=== PATIENT | male | born 1980 | race African-American/Black ===

== ENCOUNTER 2021-02-05 02:07 | Emergency (ER) | payer MEDICAID ==
[~2021-02-05] VITALS: Ht 182.9 cm; Wt 82.0 kg
[2021-02-05 02:09] VITALS: BP 140/83
[2021-02-05] MEDS ORDERED: BACITRACIN ZINC OINT UDPKT TOP ONE (02:30)
[2021-02-05] MEDS ORDERED: TETANUS, DIPHTHERIA, PERTUSSIS VAC/PF 0.5ML (>10YR OLD) IM ONE (02:30)
[2021-02-05] MEDS ORDERED: HYDROCODONE/ACETAMINOPHEN 5/325MG TABLET PO ONE (02:30)
[2021-02-05] MEDS ORDERED: LIDOCAINE HCL/PF 1% 10 MG/ML 5ML VIAL INFIL ONE (02:30)
[2021-02-05] MEDS ORDERED: LIDOCAINE HCL 1% 10 MG/ML 10ML VIAL IJ SCH (02:45)
[2021-02-05] MEDS ORDERED: CEPH500C2 MT (03:39)
[2021-02-05] MEDS ORDERED: BO1 TP (03:39)
== END 2021-02-05 05:00 | disposition home or self-care (01) ==
LOC: EDBD 02:07 → ER 02:07
DX: S56.128A Laceration of flexor muscle, fascia and tendon of left little finger at forearm level, initial encounter (principal); F17.210 Nicotine dependence, cigarettes, uncomplicated; W26.0XXA Contact with knife, initial encounter; Y93.89 Activity, other specified; Y92.010 Kitchen of single-family (private) house as the place of occurrence of the external cause
CPT/HCPCS: 12001; 99283; J3490; Z7610

== ENCOUNTER 2021-10-10 06:27 | Emergency (ER) | payer MEDICAID ==
[~2021-10-10] VITALS: Ht 175.3 cm; Wt 73.3 kg
[~2021-10-10 06:27] MED LIST: BO1 TP; CEPH500C2 MT
[2021-10-10 07:30] VITALS: BP 140/81
[2021-10-10] MEDS ORDERED: HYDROCODONE/ACETAMINOPHEN 5/325MG TABLET PO ONE (07:30)
[2021-10-10] MEDS ORDERED: HYDR-4001 MT (09:16)
== END 2021-10-10 09:34 | disposition home or self-care (01) ==
LOC: ER 06:27
DX: M25.561 Pain in right knee (principal); F17.290 Nicotine dependence, other tobacco product, uncomplicated; Y90.0 Blood alcohol level of less than 20 mg/100 ml; F10.20 Alcohol dependence, uncomplicated
CPT/HCPCS: 73562; 99283; 99406; L1830

== ENCOUNTER 2022-11-17 19:40 | Emergency (ER) | payer MEDICAID, OTHER ==
[~2022-11-17] VITALS: Ht 175.3 cm; Wt 70.0 kg
[~2022-11-17 19:40] MED LIST changes: +HYDR-4001 MT
[2022-11-17 19:57] VITALS: TEMP 98.4; O2SAT 99
[2022-11-17] MEDS ORDERED: OFLO5DRO4 RIGHT EAR (22:33)
[2022-11-17] MEDS ORDERED: TOPUD MT (22:33)
[2022-11-17] MEDS ORDERED: CETI10CA11 MT (22:33)
[2022-11-17 22:39] VITALS: BP 142/89; PULSE 91; RESP 17
== END 2022-11-17 22:42 | disposition home or self-care (01) ==
LOC: ER 19:40
DX: H60.91 Unspecified otitis externa, right ear (principal)
CPT/HCPCS: 99283

== ENCOUNTER 2023-01-28 18:20 | Emergency (ER) | payer MEDICAID, OTHER ==
[~2023-01-28] VITALS: Ht 175.3 cm; Wt 68.0 kg
[~2023-01-28 18:20] MED LIST changes: +CETI10CA11 MT; +OFLO5DRO4 RIGHT EAR; +TOPUD MT
[2023-01-28 18:38] VITALS: BP 148/102; PULSE 69; RESP 16; TEMP 98.2; O2SAT 100
[2023-01-28] MEDS ORDERED: CIPR2.5D17 LEFTEYE (20:50)
== END 2023-01-28 21:12 | disposition home or self-care (01) ==
LOC: ER 18:20
DX: T15.92XA Foreign body on external eye, part unspecified, left eye, initial encounter (principal); H57.12 Ocular pain, left eye; X58.XXXA Exposure to other specified factors, initial encounter; Y93.89 Activity, other specified; Y92.89 Other specified places as the place of occurrence of the external cause; Y99.8 Other external cause status
CPT/HCPCS: 99282; 99283

== ENCOUNTER 2023-11-14 20:58 | Inpatient (IN) | payer MEDICAID, OTHER ==
[~2023-11-14] VITALS: Ht 154.9 cm; Wt 63.0 kg
[~2023-11-14 20:58] MED LIST changes: +CIPR2.5D17 LEFTEYE
[2023-11-14 21:35] LABS: BASOPHILS % 0.4 % (0.0-2.0); DIFFERENTIAL COMMENT 0; HEMATOCRIT. 26.5 % (42.0-52.0); HEMOGLOBIN. 8.6 g/dL (14.0-18.0); MEAN CORPUSCULAR HEMOGLOBIN 30.8 pg (28.0-32.0); MEAN CORPUSCULAR HGB CONC 32.6 g/dL (31.0-37.0); MEAN CORPUSCULAR VOLUME 94.6 fL (80.0-94.0); MEAN PLATELET VOLUME 7.6 fl (7.4-10.4); MONOCYTES % 5.4 % (2.0-8.0); NEUTROPHILS % 86.2 % (40.0-76.0); PLATELET 935 x1000/uL (130-400); RED CELL DISTRIBUTION WIDTH 15.6 % (11.6-14.6); WHITE BLOOD COUNT 14.4 x1000/uL (4.5-11.0)
[2023-11-14] MEDS: LORAZEPAM 2MG/ML INJ IV ONE (21:37)
[2023-11-14 21:38] LABS: CHLORIDE 99 mEq/L (98-107); POTASSIUM 4.9 mEq/L (3.5-5.1); SODIUM 134 mEq/L (136-145)
[2023-11-14 21:39] LABS: CARBON DIOXIDE 21 mEq/L (21-32)
[2023-11-14 21:40] LABS: CALCIUM 9.5 mg/dL (8.7-10.4)
[2023-11-14] MEDS: ASPIRIN 81MG TABLET PO ONE (21:40)
[2023-11-14] MEDS: NITROGLYCERIN OINT 1GM/INCH UDPKT TD ONE (21:41)
[2023-11-14 21:44] LABS: CREATININE 1.2 mg/dL (0.6-1.3); GLUCOSE 113 mg/dL (70-105); UREA NITROGEN BLOOD 36 mg/dL (9-23)
[2023-11-14 21:52] LABS: TROPONIN I HIGH SENSITIVITY 425 ng/L (3.0-53)
[2023-11-14] MEDS: NALOXONE HCL 1MG/ML 2ML VIAL IV ONE (22:54)
[2023-11-14] MEDS: FUROSEMIDE 40MG/4ML VIAL IVP SCH (22:58)
[2023-11-14 23:00] VITALS: RESP 49
[2023-11-14 23:10] LABS: BG BASE EXCESS -0.2 mmol/L (-2.0-3.0); BG CARBOXYHEMOGLOBIN 0.3 % (0.5-1.5); BG DEOXYHEMOGLOBIN 4.2 % (0.0-5.0); BG FRACTION INSPIRED OXYGEN 100; BG HCO3 ACT 24.1 mmol/L (21.0-28.0); BG METHEMOGLOBIN 0.3 % (0.5-1.5); BG OXYGEN SATURATION 95.8 % (94.0-98.0); BG OXYHEMOGLOBIN 95.2 % (94.0-98.0); BG PO2 87.4 mmHg (83.0-108.0); BG SAMPLE SITE RIGHT RADIAL; BG TOTAL HEMOGLOBIN 10.3 g/dL (13.5-17.5); BG VENT MODE MASK - NRB
[2023-11-15] VITALS (41 sets, daily range): BP systolic 82–122; BP diastolic 53–90; PULSE 96–118; RESP 22–48; TEMP 36.33624–37.0296; O2SAT 98–100
[2023-11-15 01:31] LABS: TROPONIN I HIGH SENSITIVITY 483 ng/L (3.0-53)
[2023-11-15] MEDS: FUROSEMIDE 40MG/4ML VIAL IVP NR (10:25)
[2023-11-15] MEDS ORDERED: MIDAZOLAM HCL 100 MG in SODIUM CHLORIDE 0.9% 80 ML IV PRN (12:00)
[2023-11-15] MEDS: LORAZEPAM 2MG/ML INJ IM NR (12:08)
[2023-11-15] MEDS: PROPOFOL 10MG/ML 100ML 100 ML IV PRN (12:10)
[2023-11-15 13:08] LABS: BG BASE EXCESS 6.2 mmol/L (-2.0-3.0); BG CARBOXYHEMOGLOBIN 0.7 % (0.5-1.5); BG DEOXYHEMOGLOBIN 0.7 % (0.0-5.0); BG FRACTION INSPIRED OXYGEN 100; BG HCO3 ACT 29.7 mmol/L (21.0-28.0); BG METHEMOGLOBIN 0.2 % (0.5-1.5); BG OXYGEN SATURATION 99.3 % (94.0-98.0); BG OXYHEMOGLOBIN 98.4 % (94.0-98.0); BG PCO2 38.7 mmHg (35.0-48.0); BG PH 7.503 (7.350-7.450); BG PO2 160.6 mmHg (83.0-108.0); BG SAMPLE SITE RIGHT RADIAL; BG TOTAL HEMOGLOBIN 11.5 g/dL (13.5-17.5); BG VENT MODE VENT - P/C
[2023-11-15] MEDS: MIDAZOLAM 100MG/100ML PMX 100 ML IV PRN (13:15)
[2023-11-15] MEDS ORDERED: LIDOCAINE HCL 1% 10 MG/ML 10ML VIAL ONE (13:17)
[2023-11-15] MEDS: NOREPINEPHRINE 8MG/250ML PMX 250 ML IV PRN (16:10)
[2023-11-15] MEDS ORDERED: ACETAMINOPHEN 325MG TABLET PO PRN (16:15)
[2023-11-15] MEDS ORDERED: DOCUSATE SODIUM 100MG CAPSULE PO PRN (16:15)
[2023-11-15] MEDS: VANCOMYCIN 1.5GM/250ML IV NR (16:41)
[2023-11-15] MEDS: PANTOPRAZOLE SODIUM 40 MG/VIAL IV SCH (16:52)
[2023-11-15 16:53] LABS: CLARITY URINE CLEAR (CLEAR); COLOR URINE YELLOW (YELLOW); GLUCOSE URINE NEGATIVE (NEGATIVE); KETONES URINE NEGATIVE (NEGATIVE); LEUKOCYTE ESTERASE URINE NEGATIVE (NEGATIVE); NITRITE URINE NEGATIVE (NEGATIVE); OCCULT BLOOD URINE NEGATIVE (NEGATIVE); PROTEIN URINE NEGATIVE (NEGATIVE); SPECIFIC GRAVITY URINE 1.012 (1.005-1.030); UROBILINOGEN URINE 0.2 E.U./dL (0.2-1.0)
[2023-11-15] MEDS: INSULIN LISPRO 100 UNITS/ML SUBCUT SCH (17:00)
[2023-11-15] MEDS: BLOOD SUGAR DIAGNOSTIC STRIP TEST SCH (17:11)
[2023-11-15 17:22] LABS: *AMPHETAMINES SCREEN URINE NEGATIVE (NEGATIVE); *BARBITURATES SCREEN URINE NEGATIVE (NEGATIVE); *BENZODIAZEPINES SCREEN URINE NEGATIVE (NEGATIVE); *COCAINE SCREEN URINE PRESUMPTIVE POSITIVE (NEGATIVE); CANNABINOID URINE SCREEN NEGATIVE (NEGATIVE); ECSTASY MDMA SCREEN URINE NEGATIVE (NEGATIVE); METHADONE URINE SCREEN NEGATIVE (NEGATIVE); OPIATES URINE SCREEN NEGATIVE (NEGATIVE); PHENCYCLIDINE URINE SCREEN NEGATIVE (NEGATIVE)
[2023-11-15] MEDS: ENOXAPARIN 80MG/0.8ML SYR SUBCUT NR (18:24)
[2023-11-15 20:24] LABS: BASOPHILS % 0.4 % (0.0-2.0); EOSINOPHILS % 0.2 % (0.0-5.0); HEMATOCRIT. 26.8 % (42.0-52.0); HEMOGLOBIN. 8.7 g/dL (14.0-18.0); LYMPHOCYTES % 10.4 % (20.0-50.0); MEAN CORPUSCULAR HEMOGLOBIN 30.9 pg (28.0-32.0); MEAN CORPUSCULAR HGB CONC 32.5 g/dL (31.0-37.0); MEAN CORPUSCULAR VOLUME 95.2 fL (80.0-94.0); MEAN PLATELET VOLUME 7.8 fl (7.4-10.4); PLATELET 779 x1000/uL (130-400); RED BLOOD CELL COUNT 2.81 mill/uL (4.7-6.1); RED CELL DISTRIBUTION WIDTH 15.6 % (11.6-14.6); WHITE BLOOD COUNT 16.7 x1000/uL (4.5-11.0)
[2023-11-15 20:29] LABS: CARBON DIOXIDE 30 mEq/L (21-32); CHLORIDE 103 mEq/L (98-107); POTASSIUM 3.4 mEq/L (3.5-5.1); SODIUM 140 mEq/L (136-145)
[2023-11-15 20:30] LABS: CALCIUM 8.6 mg/dL (8.7-10.4)
[2023-11-15 20:35] LABS: CREATININE 1.1 mg/dL (0.6-1.3); GLUCOSE 79 mg/dL (70-105); UREA NITROGEN BLOOD 33 mg/dL (9-23)
[2023-11-15 20:36] LABS: ALANINE AMINOTRANSFERASE 23 IU/L (10-49); ALBUMIN 3.7 g/dL (3.2-4.8)
[2023-11-15 20:37] LABS: ASPARTATE AMINOTRANSFERASE 35 IU/L (<34); BILIRUBIN DIRECT 0.2 mg/dL (<=3.0); BILIRUBIN TOTAL 0.7 mg/dL (0.1-1.0); PHOSPHORUS 4.1 mg/dL (2.5-4.9); PROTEIN TOTAL 6.7 g/dL (6.0-8.3)
[2023-11-15 20:40] LABS: T4 FREE 1.29 ng/dL (0.89-1.76); THYROID STIMULATING HORMONE 0.38 uIU/mL (0.55-4.78)
[2023-11-15 20:42] LABS: D-DIMER 4.53 mg/L FEU (<0.50); INR 1.2; PROTHROMBIN TIME 13.6 sec (9.6-11.0)
[2023-11-15] MEDS: DEXTROSE 50% WATER 50ML SYRINGE IV PRN (21:04)
[2023-11-15] MEDS: FUROSEMIDE 40MG/4ML VIAL IVP SCH (21:23)
[2023-11-15] MEDS: PIPERACILLIN/TAZO 3.375G/50ML 50 ML IV SCH (21:24)
[2023-11-16] VITALS (106 sets, daily range): BP systolic 90–131; BP diastolic 57–110; PULSE 93–110; RESP 16–25; TEMP 36.00288–37.00296; O2SAT 96–100
[2023-11-16] MEDS: VANCOMYCIN 1000MG/250ML IV SCH (04:17)
[2023-11-16 05:28] LABS: BASOPHILS % 0.7 % (0.0-2.0); EOSINOPHILS % 0.4 % (0.0-5.0); HEMATOCRIT. 23.9 % (42.0-52.0); LYMPHOCYTES % 8.1 % (20.0-50.0); MEAN CORPUSCULAR HEMOGLOBIN 31.4 pg (28.0-32.0); MEAN CORPUSCULAR HGB CONC 33.5 g/dL (31.0-37.0); MEAN CORPUSCULAR VOLUME 93.8 fL (80.0-94.0); MEAN PLATELET VOLUME 8.2 fl (7.4-10.4); MONOCYTES % 5.4 % (2.0-8.0); NEUTROPHILS % 85.4 % (40.0-76.0); PLATELET 669 x1000/uL (130-400); RED BLOOD CELL COUNT 2.55 mill/uL (4.7-6.1); WHITE BLOOD COUNT 12.7 x1000/uL (4.5-11.0)
[2023-11-16 05:39] LABS: CARBON DIOXIDE 31 mEq/L (21-32); CHLORIDE 102 mEq/L (98-107); POTASSIUM 2.9 mEq/L (3.5-5.1); SODIUM 143 mEq/L (136-145)
[2023-11-16 05:40] LABS: CALCIUM 9.1 mg/dL (8.7-10.4)
[2023-11-16 05:42] LABS: FOLIC ACID (FOLATE) SERUM 7.19 ng/mL (>5.38); VITAMIN B12 SERUM 329 pg/mL (211-911)
[2023-11-16 05:43] LABS: FERRITIN 1029 ng/mL (22-322)
[2023-11-16 05:44] LABS: IRON 19 ug/dL (65-175)
[2023-11-16 05:45] LABS: CREATININE 0.9 mg/dL (0.6-1.3); GLUCOSE 77 mg/dL (70-105); TOTAL IRON BINDING CAPACITY 340 ug/dl (250-425); TRIGLYCERIDE 249 mg/dL (0-150); UREA NITROGEN BLOOD 28 mg/dL (9-23)
[2023-11-16 05:46] LABS: ALANINE AMINOTRANSFERASE 23 IU/L (10-49); ALBUMIN 3.8 g/dL (3.2-4.8); LDL CHOLESTEROL 94 mg/dL (5-100)
[2023-11-16 05:47] LABS: ASPARTATE AMINOTRANSFERASE 30 IU/L (<34); BILIRUBIN DIRECT 0.2 mg/dL (<=3.0); BILIRUBIN TOTAL 0.7 mg/dL (0.1-1.0); CHOLESTEROL 159 mg/dL (<200); HDL CHOLESTEROL 21 mg/dL (>55); PHOSPHORUS 3.1 mg/dL (2.5-4.9); PROTEIN TOTAL 6.7 g/dL (6.0-8.3)
[2023-11-16] MEDS: ENOXAPARIN 60MG/0.6ML SYR SUBCUT SCH (05:57)
[2023-11-16 06:14] LABS: INR 1.2
[2023-11-16] MEDS: KCL 20MEQ/100ML PREMIX 100 ML IV SCH (07:58)
[2023-11-16] MEDS: ASPIRIN 81MG TABLET PO SCH (08:05)
[2023-11-16 08:31] LABS: BG CARBOXYHEMOGLOBIN 0.7 % (0.5-1.5); BG DEOXYHEMOGLOBIN 1.1 % (0.0-5.0); BG FRACTION INSPIRED OXYGEN 50; BG HCO3 ACT 32.8 mmol/L (21.0-28.0); BG METHEMOGLOBIN 0.3 % (0.5-1.5); BG OXYGEN SATURATION 98.9 % (94.0-98.0); BG OXYHEMOGLOBIN 97.9 % (94.0-98.0); BG PCO2 42.4 mmHg (35.0-48.0); BG PH 7.507 (7.350-7.450); BG PO2 128.1 mmHg (83.0-108.0); BG SAMPLE SITE RIGHT RADIAL; BG TOTAL HEMOGLOBIN 7.9 g/dL (13.5-17.5); BG VENT MODE VENT - AC/PC
[2023-11-16] MEDS: AZITHROMYCIN 500 MG TABLET PO SCH (16:30)
[2023-11-16] MEDS: VANCOMYCIN 750MG/150ML (BAXTER) IV SCH (17:07)
[2023-11-16] MEDS ORDERED: PROPOFOL 10MG/ML 100ML 100 ML IV PRN ×2 (18:30→18:45)
[2023-11-17] VITALS (75 sets, daily range): BP systolic 93–130; BP diastolic 62–90; PULSE 91–109; RESP 12–21; TEMP 36.44736–37.00296; O2SAT 94–100
[2023-11-17 02:58] LABS: BASOPHILS % 0.8 % (0.0-2.0); EOSINOPHILS % 2.5 % (0.0-5.0); HEMATOCRIT. 24.4 % (42.0-52.0); HEMOGLOBIN. 8.2 g/dL (14.0-18.0); LYMPHOCYTES % 15.8 % (20.0-50.0); MEAN CORPUSCULAR HEMOGLOBIN 31.2 pg (28.0-32.0); MEAN CORPUSCULAR HGB CONC 33.6 g/dL (31.0-37.0); MEAN CORPUSCULAR VOLUME 92.9 fL (80.0-94.0); MEAN PLATELET VOLUME 7.1 fl (7.4-10.4); MONOCYTES % 9.2 % (2.0-8.0); NEUTROPHILS % 71.7 % (40.0-76.0); PLATELET 699 x1000/uL (130-400); RED BLOOD CELL COUNT 2.62 mill/uL (4.7-6.1); RED CELL DISTRIBUTION WIDTH 15.6 % (11.6-14.6)
[2023-11-17 03:02] LABS: CHLORIDE 105 mEq/L (98-107); SODIUM 143 mEq/L (136-145)
[2023-11-17 03:03] LABS: CARBON DIOXIDE 32 mEq/L (21-32)
[2023-11-17 03:04] LABS: CALCIUM 8.9 mg/dL (8.7-10.4)
[2023-11-17 03:08] LABS: CREATININE 1.1 mg/dL (0.6-1.3); GLUCOSE 102 mg/dL (70-105)
[2023-11-17 03:09] LABS: UREA NITROGEN BLOOD 23 mg/dL (9-23)
[2023-11-17 03:11] LABS: ALBUMIN 3.7 g/dL (3.2-4.8); PREALBUMIN 9.3 mg/dl (10.0-40.0)
[2023-11-17] MEDS: KCL 20MEQ/100ML PREMIX 100 ML IV SCH ×2 (07:47→09:10)
[2023-11-17] MEDS: MAGNESIUM 2 G PREMIX 50 ML IV NR (09:27)
[2023-11-17] MEDS: MIDAZOLAM 100MG/100ML PMX 100 ML IV PRN (16:00)
[2023-11-17] MEDS ORDERED: PROPOFOL 10MG/ML 100ML 100 ML IV PRN (18:30)
[2023-11-18] VITALS (77 sets, daily range): BP systolic 101–146; BP diastolic 77–112; PULSE 94–113; RESP 14–29; TEMP 36.61404–37.11408; O2SAT 96–100
[2023-11-18] MEDS: LORAZEPAM 2MG/ML INJ IV PRN (01:30)
[2023-11-18] MEDS: ONDANSETRON HCL 4MG/2ML INJ IV PRN (01:30)
[2023-11-18 05:03] LABS: CHLORIDE 106 mEq/L (98-107); POTASSIUM 3.1 mEq/L (3.5-5.1); SODIUM 146 mEq/L (136-145)
[2023-11-18 05:04] LABS: CARBON DIOXIDE 31 mEq/L (21-32)
[2023-11-18 05:05] LABS: CALCIUM 9.5 mg/dL (8.7-10.4)
[2023-11-18 05:09] LABS: CREATININE 1.1 mg/dL (0.6-1.3); GLUCOSE 104 mg/dL (70-105)
[2023-11-18 05:10] LABS: UREA NITROGEN BLOOD 24 mg/dL (9-23)
[2023-11-18] MEDS: KCL 20MEQ/100ML PREMIX 100 ML IV SCH (09:09)
[2023-11-18 09:34] LABS: BG BASE EXCESS 7.9 mmol/L (-2.0-3.0); BG DEOXYHEMOGLOBIN 0.3 % (0.0-5.0); BG FRACTION INSPIRED OXYGEN 40; BG HCO3 ACT 30.2 mmol/L (21.0-28.0); BG OXYGEN SATURATION 99.7 % (94.0-98.0); BG OXYHEMOGLOBIN 99.7 % (94.0-98.0); BG PCO2 33.3 mmHg (35.0-48.0); BG PH 7.576 (7.350-7.450); BG PO2 167.3 mmHg (83.0-108.0); BG SAMPLE SITE LEFT RADIAL; BG TOTAL HEMOGLOBIN 9.3 g/dL (13.5-17.5); BG VENT MODE VENT - P/C
[2023-11-18 16:16] LABS: BG CARBOXYHEMOGLOBIN 0.2 % (0.5-1.5); BG DEOXYHEMOGLOBIN 0.6 % (0.0-5.0); BG FRACTION INSPIRED OXYGEN 40; BG HCO3 ACT 31.9 mmol/L (21.0-28.0); BG METHEMOGLOBIN 0.2 % (0.5-1.5); BG OXYGEN SATURATION 99.4 % (94.0-98.0); BG PCO2 41.9 mmHg (35.0-48.0); BG PO2 189.4 mmHg (83.0-108.0); BG SAMPLE SITE LEFT RADIAL; BG TOTAL HEMOGLOBIN 10.4 g/dL (13.5-17.5); BG VENT MODE VENT - CPAP
[2023-11-18] MEDS: CEFTRIAXONE 1GM/50ML 50 ML IV SCH (16:32)
[2023-11-18] MEDS: METRONIDAZOLE 500MG TABLET PO SCH (17:55)
[2023-11-19] VITALS (27 sets, daily range): BP systolic 92–137; BP diastolic 64–103; PULSE 100–118; RESP 14–26; TEMP 36.61404–37.05852; O2SAT 80–100
[2023-11-19 05:58] LABS: BASOPHILS % 0.9 % (0.0-2.0); EOSINOPHILS % 2.3 % (0.0-5.0); HEMATOCRIT. 30.5 % (42.0-52.0); HEMOGLOBIN. 10.1 g/dL (14.0-18.0); LYMPHOCYTES % 21.9 % (20.0-50.0); MEAN CORPUSCULAR HEMOGLOBIN 30.7 pg (28.0-32.0); MEAN CORPUSCULAR VOLUME 92.9 fL (80.0-94.0); MEAN PLATELET VOLUME 7.8 fl (7.4-10.4); MONOCYTES % 13.3 % (2.0-8.0); NEUTROPHILS % 61.6 % (40.0-76.0); PLATELET 723 x1000/uL (130-400); RED BLOOD CELL COUNT 3.28 mill/uL (4.7-6.1); RED CELL DISTRIBUTION WIDTH 16.1 % (11.6-14.6); WHITE BLOOD COUNT 7.3 x1000/uL (4.5-11.0)
[2023-11-19 05:59] LABS: CHLORIDE 108 mEq/L (98-107); POTASSIUM 3.5 mEq/L (3.5-5.1); SODIUM 147 mEq/L (136-145)
[2023-11-19 06:00] LABS: CALCIUM 9.8 mg/dL (8.7-10.4); CARBON DIOXIDE 30 mEq/L (21-32)
[2023-11-19 06:01] LABS: ALANINE AMINOTRANSFERASE 72 IU/L (10-49); ALBUMIN 4.3 g/dL (3.2-4.8); ASPARTATE AMINOTRANSFERASE 62 IU/L (<34); BILIRUBIN DIRECT 0.1 mg/dL (<=3.0); BILIRUBIN TOTAL 0.4 mg/dL (0.1-1.0); PHOSPHORUS 4.5 mg/dL (2.5-4.9); PROTEIN TOTAL 7.9 g/dL (6.0-8.3)
[2023-11-19 06:05] LABS: GLUCOSE 93 mg/dL (70-105); UREA NITROGEN BLOOD 21 mg/dL (9-23)
[2023-11-19] MEDS: ENOXAPARIN 60MG/0.6ML SYR SUBCUT SCH (18:05)
[2023-11-20] VITALS (12 sets, daily range): BP systolic 108–134; BP diastolic 76–116; PULSE 95–113; RESP 16–23; TEMP 36.28068–36.55848; O2SAT 98–100
[2023-11-20] MEDS: ACETAMINOPHEN 325MG TABLET PO PRN (04:05)
[2023-11-20 07:04] LABS: CARBON DIOXIDE 30 mEq/L (21-32); CHLORIDE 99 mEq/L (98-107); POTASSIUM 3.7 mEq/L (3.5-5.1)
[2023-11-20 07:05] LABS: CALCIUM 9.4 mg/dL (8.7-10.4)
[2023-11-20 07:10] LABS: CREATININE 0.9 mg/dL (0.6-1.3); GLUCOSE 98 mg/dL (70-105); UREA NITROGEN BLOOD 22 mg/dL (9-23)
[2023-11-20 07:15] LABS: SODIUM 135 mEq/L (136-145)
[2023-11-20 07:16] LABS: BASOPHILS % 0.5 % (0.0-2.0); EOSINOPHILS % 2.4 % (0.0-5.0); HEMATOCRIT. 29.9 % (42.0-52.0); HEMOGLOBIN. 9.7 g/dL (14.0-18.0); LYMPHOCYTES % 26.4 % (20.0-50.0); MEAN CORPUSCULAR HEMOGLOBIN 30.1 pg (28.0-32.0); MEAN CORPUSCULAR HGB CONC 32.5 g/dL (31.0-37.0); MEAN CORPUSCULAR VOLUME 92.6 fL (80.0-94.0); MEAN PLATELET VOLUME 7.5 fl (7.4-10.4); MONOCYTES % 12.4 % (2.0-8.0); NEUTROPHILS % 58.3 % (40.0-76.0); PLATELET 559 x1000/uL (130-400); RED BLOOD CELL COUNT 3.23 mill/uL (4.7-6.1); RED CELL DISTRIBUTION WIDTH 15.6 % (11.6-14.6); WHITE BLOOD COUNT 6.8 x1000/uL (4.5-11.0)
[2023-11-20] MEDS: FAMOTIDINE 20MG/2ML VIAL IV SCH (09:22)
[2023-11-21] VITALS: BP 112/78; PULSE 106; RESP 19; TEMP 36.44736; O2SAT 100
[2023-11-21] MEDS ORDERED: IOHEXOL-350 100 ML BOTTLE ONE (00:46)
[2023-11-21 02:00] VITALS: PULSE 106; RESP 19; O2SAT 100
[2023-11-21 04:00] VITALS: BP 126/93; PULSE 95; RESP 15; TEMP 36.33624; O2SAT 100
[2023-11-21 05:33] LABS: BASOPHILS % 0.9 % (0.0-2.0); EOSINOPHILS % 2.2 % (0.0-5.0); HEMATOCRIT. 31.2 % (42.0-52.0); LYMPHOCYTES % 35.2 % (20.0-50.0); MEAN CORPUSCULAR HEMOGLOBIN 29.7 pg (28.0-32.0); MEAN CORPUSCULAR HGB CONC 32.2 g/dL (31.0-37.0); MEAN CORPUSCULAR VOLUME 92.5 fL (80.0-94.0); MEAN PLATELET VOLUME 7.7 fl (7.4-10.4); MONOCYTES % 12.8 % (2.0-8.0); NEUTROPHILS % 48.9 % (40.0-76.0); PLATELET 571 x1000/uL (130-400); RED BLOOD CELL COUNT 3.37 mill/uL (4.7-6.1); RED CELL DISTRIBUTION WIDTH 15.6 % (11.6-14.6); WHITE BLOOD COUNT 6.2 x1000/uL (4.5-11.0)
[2023-11-21 05:46] LABS: CALCIUM 9.6 mg/dL (8.7-10.4); CARBON DIOXIDE 28 mEq/L (21-32)
[2023-11-21 05:51] LABS: GLUCOSE 86 mg/dL (70-105); UREA NITROGEN BLOOD 28 mg/dL (9-23)
[2023-11-21 06:00] VITALS: BP 117/81; PULSE 102; RESP 11; O2SAT 100
[2023-11-21 08:00] VITALS: BP 128/81; PULSE 105; RESP 20; TEMP 36.3918; TEMP 36.39180; O2SAT 98
[2023-11-21 09:32] LABS: CHLORIDE 100 mEq/L (98-107); POTASSIUM 3.9 mEq/L (3.5-5.1); SODIUM 135 mEq/L (136-145)
[2023-11-21] MEDS ORDERED: FAMO20TA8 MT (11:33)
[2023-11-21] MEDS ORDERED: ASPI-1160 PO (11:33)
[2023-11-21] MEDS ORDERED: FURO-151 PO (11:33)
== END 2023-11-21 16:55 | disposition home or self-care (01) | DRG 720 ==
LOC: ER 20:58 → MICUSO 23:32 → 5EST 11-19 13:44
PROVIDERS: ADMIT Internal Medicine; ATTEND Internal Medicine
PROC: 5A1945Z Respiratory Ventilation, 24-96 Consecutive Hours (ICD-10-PCS; principal; 2023-11-15)
PROC: 0BH17EZ Insertion of Endotracheal Airway into Trachea, Via Natural or Artificial Opening (ICD-10-PCS; 2023-11-15)
PROC: 5A09357 Assistance with Respiratory Ventilation, Less than 24 Consecutive Hours, Continuous Positive Airway Pressure (ICD-10-PCS; 2023-11-15)
PROC: 02HV33Z Insertion of Infusion Device into Superior Vena Cava, Percutaneous Approach (ICD-10-PCS; 2023-11-15)
PROC: B548ZZA Ultrasonography of Superior Vena Cava, Guidance (ICD-10-PCS; 2023-11-15)
DX: A41.9 Sepsis, unspecified organism (principal); J96.01 Acute respiratory failure with hypoxia; I50.23 Acute on chronic systolic (congestive) heart failure; L89.210 Pressure ulcer of right hip, unstageable; N17.9 Acute kidney failure, unspecified; I13.0 Hypertensive heart and chronic kidney disease with heart failure and stage 1 through stage 4 chronic kidney disease, or unspecified chronic kidney disease; J18.9 Pneumonia, unspecified organism; Z20.822 Contact with and (suspected) exposure to COVID-19; F14.10 Cocaine abuse, uncomplicated; N18.9 Chronic kidney disease, unspecified; D64.9 Anemia, unspecified; F10.10 Alcohol abuse, uncomplicated; F17.210 Nicotine dependence, cigarettes, uncomplicated; D75.839 Thrombocytosis, unspecified; Z59.00 Homelessness unspecified
CPT/HCPCS: 31500; 36415; 36573; 36600; 71045; 71275; 80048; 80061; 80076; 80202; 80305; 81003; 82040; 82270; 82375; 82550; 82553; 82607; 82728; 82746; 82805; 82962; 83036; 83540; 83550; 83605; 83735; 83880; 84100; 84134; 84145; 84439; 84443; 84480; 84484; 85025; 85379; 87070; 87426; 87449; 92610; 93005; 93306; 93970; 94003; 94660; 99291; A6261; C1725; J0696; J1650; J1940; J2060; J2250; J2310; J2405; J2470; J2543; J2704; J3370; J3475; J3480; J3490; J7050; Q9967